=== PATIENT | male | born 1960 | race Two or more races ===

== ENCOUNTER 2019-11-16 04:58 | Day surgery (SDC) | payer OTHER ==
[~2019-11-16 04:58] MED LIST: RESTORIL30 M1 PO
[2019-11-16] MEDS ORDERED: PERCOCET 5-3251 EACH PO (08:40)
[2019-11-16] MEDS ORDERED: RECTICARE30 GM TOP (08:41)
== END 2019-11-16 14:10 | disposition home or self-care (01) ==
LOC: CIR.AMB 04:58 → EDSEX 09:00 → EDBD 09:00 → CIR.AMB 13:00
PROVIDERS: ATTEND Surgery
DX: K64.8 Other hemorrhoids (principal); K60.1 Chronic anal fissure; Z20.828 Contact with and (suspected) exposure to other viral communicable diseases